=== PATIENT | female | born 1985 | race Two or more races ===

== ENCOUNTER 2020-03-10 09:53 | Outpatient (REF) | payer OTHER, SELFPAY | END 2020-03-10 09:54 | disposition home or self-care (01) | LOC: HO.LAB 09:53 | PROVIDERS: Visit Provider Internal Medicine | DX: Z20.828 Contact with and (suspected) exposure to other viral communicable diseases (principal) | CPT/HCPCS: C9803; U0003 ==

== ENCOUNTER 2020-03-24 11:37 | Outpatient (REF) | payer OTHER, SELFPAY | END 2020-03-24 11:38 | disposition home or self-care (01) | LOC: HO.LAB 11:37 | PROVIDERS: Visit Provider Internal Medicine | DX: Z20.822 Contact with and (suspected) exposure to COVID-19 (principal) | CPT/HCPCS: 36415; C9803; U0003 ==

== ENCOUNTER 2020-06-06 09:36 | Outpatient (REF) | payer OTHER, SELFPAY | END 2020-06-06 09:37 | disposition home or self-care (01) | LOC: HO.LAB 09:36 | PROVIDERS: Visit Provider Internal Medicine | DX: Z20.822 Contact with and (suspected) exposure to COVID-19 (principal) | CPT/HCPCS: 36415; C9803; U0003; U0005 ==

== ENCOUNTER 2021-03-03 10:28 | Outpatient (REF) | payer OTHER, SELFPAY | END 2021-03-03 10:29 | disposition home or self-care (01) | LOC: HO.LAB 10:28 | PROVIDERS: Visit Provider Internal Medicine | DX: Z20.822 Contact with and (suspected) exposure to COVID-19 (principal) | CPT/HCPCS: C9803; U0003; U0005 ==